=== PATIENT | male | born 1990 | race Caucasian/White ===

== ENCOUNTER 2024-05-26 22:18 | Emergency (ER) | payer SELFPAY ==
[~2024-05-26] VITALS: Ht 182.9 cm; Wt 80.0 kg
[2024-05-26 22:23] VITALS: O2SAT 100
[2024-05-26] MEDS ORDERED: DOXY100C5 MT (22:33)
[2024-05-26 22:43] VITALS: BP 121/65; PULSE 64; RESP 16; TEMP 36.7; O2SAT 100
== END 2024-05-26 22:42 | disposition home or self-care (01) ==
LOC: ER 22:18
DX: Z00.8 Encounter for other general examination (principal); Z76.0 Encounter for issue of repeat prescription
CPT/HCPCS: 99281